=== PATIENT | female | born 1995 | race Caucasian/White ===

== ENCOUNTER 2022-01-10 09:11 | Emergency (ER) | payer MEDICAID ==
[~2022-01-10] VITALS: Ht 160 cm; Wt 74.8 kg
[2022-01-10 09:20] VITALS: BP 134/99
--- NOTE | 2022-01-10 09:30 | NUR ---
26 Y/O F AMBULATED TO BED 1, C/O COUGH, RUNNY NOSE, MID CP, CARMEN, SORE THROAT X 2 DAYS AND C/O DIFFICULTY BREATHING X YESTERDAY . COVID TESTED NEGATIVE 2 DAYS AGO. PMD NONE NKDA
--- NOTE | 2022-01-10 11:15 | NUR ---
WALKED STREP A SWABS DOWN TO LAB
[2022-01-10] MEDS ORDERED: AMOX500C25 PO (11:16)
[2022-01-10 12:00] VITALS: BP 126/84
== END 2022-01-10 12:00 | disposition home or self-care (01) ==
LOC: MED 09:11
DX: J02.9 Acute pharyngitis, unspecified (principal); R05.9 Cough, unspecified; R51.9 Headache, unspecified; Z79.899 Other long term (current) drug therapy
CPT/HCPCS: 71045; 87081; 99284; Q0092

== ENCOUNTER 2024-04-19 11:09 | Emergency (ER) | payer MEDICAID ==
[~2024-04-19] VITALS: Ht 157.5 cm; Wt 72.2 kg
[~2024-04-19 11:09] MED LIST: AMOX500C25 PO
[2024-04-19 11:28] VITALS: BP 115/80; PULSE 74; RESP 18; TEMP 97.2; O2SAT 99
[2024-04-19] MEDS ORDERED: ONDANSETRON 4 MG/2 ML VIAL IVP ONE (11:40)
[2024-04-19] MEDS ORDERED: FAMOTIDINE 20 MG/2 ML VIAL IVP ONE (11:40)
[2024-04-19 11:48] LABS: APPEARANCE,URINE CLEAR (CLEAR); BILIRUBIN,URINE 1+ (NEGATIVE); BLOOD, URINE NEGATIVE (NEGATIVE); COLOR,URINE YELLOW (YELLOW); LEUKOCYTE ESTERASE ,URINE NEGATIVE (NEGATIVE); NITRITE, URINE NEGATIVE (NEGATIVE); PROTEIN,URINE NEGATIVE (NEGATIVE); UGLUCOSE NEGATIVE (NEGATIVE); UROBILINOGEN,URINE 0.2 EU/dL (0.2 - 1)
[2024-04-19] MEDS: NACL 0.9% 1,000 ML IV ONE (11:48)
[2024-04-19 11:54] LABS: ICTOTEST NEGATIVE (NEGATIVE)
[2024-04-19] MEDS: ONDANSETRON 4 MG/2 ML VIAL IVP ONE (11:54)
[2024-04-19 11:56] LABS: RBC,URINE 0-5 /HPF (0-5)
[2024-04-19 11:57] LABS: BASOPHILS # (AUTO) 0.1 K/uL (0.00-0.22); BASOPHILS % (AUTO) 0.6 % (0.0-2.0); EOSINOPHILS % (AUTO) 0.4 % (0.0-4.0); HEMATOCRIT 37.9 % (36-48); HEMOGLOBIN 12.6 g/dL (12.0-16.0); LYMPHOCYTES # (AUTO) 2.2 K/uL (2.5-16.5); LYMPHOCYTES % (AUTO) 25.3 % (20.5-51.1); MEAN CORPUSCULAR HEMOGLOBIN 30 pg (27-31); MEAN CORPUSCULAR HGB CONC 33 g/dL (33-37); MEAN CORPUSCULAR VOLUME 89.5 fL (80-94); MONOCYTES # (AUTO) 0.7 K/uL (0.8-1.0); NEUTROPHILS # (AUTO) 5.8 K/uL (1.8-7.7); NEUTROPHILS % (AUTO) 65.7 % (42.2-75.2); PLATELET COUNT (AUTO) 246 K/uL (140-450); RED BLOOD CELL COUNT(AUTO) 4.24 MIL/uL (4.20-5.40); WHITE BLOOD COUNT (AUTO) 8.9 K/uL (4.8-10.8)
[2024-04-19 11:57] LABS: BACTERIA,URINE OCCASSIONAL /HPF (None Seen); SQUAMOUS EPITHELIAL CELL,UR 0-3 (FEW) /LPF (0-3 (FEW)); WBC,URINE 0-5 /HPF (0-5)
[2024-04-19 12:10] LABS: ANION GAP 13.7 (8-16); CALCIUM 8.9 mg/dL (8.5-10.1); CARBON DIOXIDE 22.3 mmol/L (21-32); CREATININE 0.8 mg/dL (0.6-1.3)
[2024-04-19 12:15] LABS: ALBUMIN 3.5 g/dL (3.4-5.0); BILIRUBIN,DIRECT 0.1 mg/dL (0.0-0.3); TOTAL BILIRUBIN 0.3 mg/dL (0.0-1.0); TOTAL PROTEIN, SERUM 7.3 g/dL (6.4-8.2)
[2024-04-19 12:21] LABS: AMPHETAMINE, URINE NEGATIVE ng/ml (NEG <=1000); BARBITURATE, URINE NEGATIVE ng/ml (NEG <=200); BENZODIAZEPINE, URINE NEGATIVE ng/mL (NEG <=200); CANNABINOID, URINE NEGATIVE ng/mL (NEG <=50); COCAINE, URINE NEGATIVE ng/mL (NEG <=300); OPIATE, URINE NEGATIVE ng/mL (NEG <=2000); PHENCYCLIDINE SCREEN,URINE NEGATIVE ng/mL (NEG <=25)
[2024-04-19] MEDS ORDERED: PYRI-218 PO (12:50)
[2024-04-19] MEDS ORDERED: CEPH-588 PO (12:50)
[2024-04-19] MEDS ORDERED: DOXY25TA61 PO (12:50)
[2024-04-19 13:00] VITALS: BP 116/75; PULSE 65; RESP 16; TEMP 97.4; O2SAT 99
== END 2024-04-19 13:13 | disposition home or self-care (01) ==
LOC: MED 11:09
DX: O28.8 Other abnormal findings on antenatal screening of mother (principal); O26.891 Other specified pregnancy related conditions, first trimester; R11.2 Nausea with vomiting, unspecified; R10.2 Pelvic and perineal pain; Z3A.01 Less than 8 weeks gestation of pregnancy; Z79.899 Other long term (current) drug therapy
CPT/HCPCS: 36415; 76817; 80048; 80076; 80305; 81001; 81025; 83690; 84702; 85025; 96361; 96374; 99285; J2405; J7030; Q0092; J3490

== ENCOUNTER 2024-05-11 13:16 | Emergency (ER) | payer MEDICAID ==
[~2024-05-11] VITALS: Ht 157.5 cm; Wt 69.4 kg
[~2024-05-11 13:16] MED LIST changes: +CEPH-588 PO; +DOXY25TA61 PO; +PYRI-218 PO
[2024-05-11 13:22] VITALS: BP 118/77; PULSE 78; RESP 18; TEMP 97.9; O2SAT 100
[2024-05-11 15:16] LABS: APPEARANCE,URINE CLEAR (CLEAR); BILIRUBIN,URINE NEGATIVE (NEGATIVE); BLOOD, URINE NEGATIVE (NEGATIVE); COLOR,URINE YELLOW (YELLOW); LEUKOCYTE ESTERASE ,URINE NEGATIVE (NEGATIVE); NITRITE, URINE NEGATIVE (NEGATIVE); PH,URINE 7.5 (5.0-9.0); PROTEIN,URINE NEGATIVE (NEGATIVE); UGLUCOSE NEGATIVE (NEGATIVE); UROBILINOGEN,URINE 0.2 EU/dL (0.2 - 1)
[2024-05-11 15:31] LABS: BASOPHILS # (AUTO) 0.1 K/uL (0.00-0.22); BASOPHILS % (AUTO) 0.7 % (0.0-2.0); EOSINOPHILS % (AUTO) 0.6 % (0.0-4.0); HEMATOCRIT 36.7 % (36-48); HEMOGLOBIN 12.3 g/dL (12.0-16.0); LYMPHOCYTES # (AUTO) 2.4 K/uL (2.5-16.5); LYMPHOCYTES % (AUTO) 29.8 % (20.5-51.1); MEAN CORPUSCULAR HEMOGLOBIN 30 pg (27-31); MEAN CORPUSCULAR HGB CONC 34 g/dL (33-37); MEAN CORPUSCULAR VOLUME 90.6 fL (80-94); MONOCYTES # (AUTO) 0.5 K/uL (0.8-1.0); MONOCYTES % (AUTO) 6.7 % (1.7-9.3); NEUTROPHILS # (AUTO) 4.9 K/uL (1.8-7.7); NEUTROPHILS % (AUTO) 62.2 % (42.2-75.2); PLATELET COUNT (AUTO) 266 K/uL (140-450); RED BLOOD CELL COUNT(AUTO) 4.05 MIL/uL (4.20-5.40); RED CELL DISTRIBUTION WIDTH 14.2 % (11.6-13.7); WHITE BLOOD COUNT (AUTO) 7.9 K/uL (4.8-10.8)
[2024-05-11 19:12] VITALS: O2SAT 100
== END 2024-05-11 17:06 | disposition home or self-care (01) ==
LOC: MED 13:16
DX: O03.9 Complete or unspecified spontaneous abortion without complication (principal); Z3A.11 11 weeks gestation of pregnancy; Z98.890 Other specified postprocedural states; Z79.899 Other long term (current) drug therapy
CPT/HCPCS: 36415; 76817; 81003; 84702; 85025; 86900; 86901; 99284